=== PATIENT | male | born 1945 | race Caucasian/White ===

== ENCOUNTER 2023-05-28 11:29 | Observation (INO) | payer OTHER ==
[2023-05-28 12:47] LABS: #Basophils 0.1 thou/uL (0.0-0.2); #Lymphocytes 0.8 thou/uL (1.20-3.40); #Monocytes 0.6 thou/uL (0.11-0.59); #Neutrophils 8.7 thou/uL (1.40-6.50); %Basophils 0.6 % (0.0-1.0); %Eosinophils 0.2 % (0.0-10.0); %Lymphocytes 8.2 % (21.0-51.0); %Monocytes 5.8 % (0.0-10.0); %Neutrophils 85.2 % (42.0-75.0); Hematocrit 42.7 % (42.0-52.0); Hemoglobin 14.1 g/dL (14.0-18.0); Mean Corpuscular HGB CONC 33.1 g/dL (32.0-36.0); Mean Corpuscular Hemoglobin 29.4 pg (27.0-31.0); Mean Corpuscular Volume 88.6 fl (78.0-98.0); Mean Platelet Volume 7.1 fL (7.4-10.4); Platelet Count 218 10x3/uL (130-400); RBC Distribution Width 13.1 % (11.5-14.5); Red Blood Cell (RBC) Count 4.82 mill/uL (4.70-6.10); White Blood Cell (WBC) Count 10.3 10x3/uL (4.8-10.8)
[2023-05-28 12:49] LABS: ALT (SGPT) 13 U/L (8-55); AST (SGOT) 20 U/L (5-34); Albumin 4.1 g/dL (3.4-4.8); Alkaline Phosphatase 73 U/L (40-110); Anion Gap 17 mmol/L (10-20); BUN (Urea Nitrogen) 20 mg/dL (8.4-25.7); Bilirubin, Total 0.9 mg/dL (0.2-1.2); Calc. Creatinine Clearance 0 mL/min (70-130); Calcium 9.1 mg/dL (7.8-10.44); Carbon Dioxide 23 mmol/L (23-31); Chloride 96 mmol/L (98-107); Estimated GFR 80; Globulin 3.6 g/dL (2.4-3.5); Glucose 107 mg/dL (83-110); Potassium 4.3 mmol/L (3.5-5.1); Protein, Total 7.7 g/dL (5.8-8.1); Sodium 132 mmol/L (136-145)
[2023-05-28 12:56] LABS: Bilirubin Negative (Negative); Blood, Urine Negative (Negative); Clarity Clear (Clear); Glucose, Urine (Dipstick) Negative (Negative); Ketone, Urine Trace mg/dL (Negative); Leukocyte Negative (Negative); Nitrite Negative (Negative); Protein, Urine (Dipstick) 100 mg/dL (Neg-Trace)
[2023-05-28 12:58] LABS: CAUTI Indications for Culture Fever or rigors; RBC/HPF None Seen HPF (0-3); Specific Gravity, Urine 1.028 (1.002-1.036); WBC/HPF 0-3 HPF (0-3)
[2023-05-28 12:59] LABS: Bacteria/HPF None Seen HPF (None Seen)
[2023-05-28 13:00] LABS: Urine Culture Reflex No No
[2023-05-28 13:00] LABS: SARS-CoV-2 NAA Rapid Test DETECTED (NotDetected)
[2023-05-28 14:01] LABS: SARS-CoV-2 NAA Rapid Test DETECTED (NotDetected)
[2023-05-28] MEDS ORDERED: Acetaminophen 325 MG TAB ONE (15:09)
[2023-05-28 15:27] LABS: Lactic Acid 2.5 mmol/L (0.5-2.2)
[2023-05-28 17:26] VITALS: BMI 21.5
[2023-05-28] MEDS: Sodium Chloride 0.9% 1,000 ML IV SCH (17:30)
[2023-05-28] MEDS ORDERED: Sodium Chloride 0.65% Nasal 44 ML BOT EA NARE PRN (17:44)
[2023-05-28] MEDS ORDERED: Senokot S 8.6-50 MG TAB PO PRN (17:44)
[2023-05-28] MEDS ORDERED: cloNIDine 0.1 MG TAB PO PRN (17:44)
[2023-05-28] MEDS ORDERED: Bisacodyl 5 MG TAB PO PRN (17:44)
[2023-05-28] MEDS ORDERED: Acetaminophen 650 MG Suppository PR PRN (17:44)
[2023-05-28] MEDS ORDERED: Bisacodyl 10 MG SUPP PR PRN (17:44)
[2023-05-28] MEDS ORDERED: Benzonatate 100 MG CAP PO PRN (17:44)
[2023-05-28] MEDS ORDERED: Benzocaine/Menthol 1 LOZ LOZ PO PRN (17:44)
[2023-05-28] MEDS ORDERED: Ondansetron ODT 4 MG TAB PO PRN (17:44)
[2023-05-28] MEDS ORDERED: Acetaminophen 325 MG TAB PO PRN (17:44)
[2023-05-28] MEDS ORDERED: Calcium Carbonate 500 MG ChewTAB PO PRN (17:44)
[2023-05-28] MEDS ORDERED: Artificial Tear Sol 15 ML BOT EA EYE PRN (17:44)
[2023-05-28] MEDS ORDERED: Guaifenesin DM 100-10/5 ML UDCUP PO PRN (17:44)
[2023-05-28] MEDS ORDERED: FLU VACC QS2023(65UP)/MF59C/PF 60 MCG/0.5 ML SYRINGE IM ONE (17:45)
[2023-05-28] MEDS: Memantine 10 MG TAB PO SCH (20:54)
[2023-05-28] MEDS: Famotidine 20 MG TAB PO SCH (20:54)
[2023-05-28] MEDS ORDERED: Atorvastatin Calcium 40 MG TAB PO SCH (21:00)
[2023-05-28] MEDS ORDERED: Donepezil HCl 10 MG TAB PO SCH (21:00)
[2023-05-28 22:38] LABS: Lactic Acid 1.9 mmol/L (0.5-2.2)
[2023-05-29] MEDS: Sodium Chloride 0.9% 1,000 ML IV SCH (01:28)
[2023-05-29 05:19] LABS: #Eosinphils 0.1 thou/uL (0.0-0.7); #Lymphocytes 1.3 thou/uL (1.20-3.40); #Monocytes 0.7 thou/uL (0.11-0.59); %Basophils 0.4 % (0.0-1.0); %Eosinophils 1.1 % (0.0-10.0); %Lymphocytes 14.1 % (21.0-51.0); %Monocytes 7.6 % (0.0-10.0); %Neutrophils 76.8 % (42.0-75.0); Hematocrit 32.7 % (42.0-52.0); Hemoglobin 11.3 g/dL (14.0-18.0); Mean Corpuscular HGB CONC 34.5 g/dL (32.0-36.0); Mean Corpuscular Hemoglobin 29.9 pg (27.0-31.0); Mean Corpuscular Volume 86.5 fl (78.0-98.0); Mean Platelet Volume 6.8 fL (7.4-10.4); Platelet Count 189 10x3/uL (130-400); RBC Distribution Width 12.8 % (11.5-14.5); Red Blood Cell (RBC) Count 3.78 mill/uL (4.70-6.10); White Blood Cell (WBC) Count 9.1 10x3/uL (4.8-10.8)
[2023-05-29 05:42] LABS: Anion Gap 12 mmol/L (10-20); Globulin 2.5 g/dL (2.4-3.5)
[2023-05-29 05:45] LABS: ALT (SGPT) 10 U/L (8-55); AST (SGOT) 18 U/L (5-34); Albumin 3.2 g/dL (3.4-4.8); Alkaline Phosphatase 51 U/L (40-110); BUN (Urea Nitrogen) 14 mg/dL (8.4-25.7); Bilirubin, Total 0.7 mg/dL (0.2-1.2); Calc. Creatinine Clearance 73 mL/min (70-130); Carbon Dioxide 21 mmol/L (23-31); Chloride 103 mmol/L (98-107); Estimated GFR 94; Glucose 90 mg/dL (83-110); Potassium 3.9 mmol/L (3.5-5.1); Protein, Total 5.7 g/dL (5.8-8.1); Sodium 132 mmol/L (136-145)
[2023-05-29 06:44] LABS: Lactic Acid 0.7 mmol/L (0.5-2.2)
[2023-05-29] MEDS ORDERED: Sodium Chloride 0.9% 1,000 ML IV SCH (06:45)
[2023-05-29] MEDS: Famotidine 20 MG TAB PO SCH (08:20)
[2023-05-29] MEDS: Memantine 10 MG TAB PO SCH (08:20)
[2023-05-29] MEDS ORDERED: Timolol 0.5% Ophth Soln 5 ml Bottle EA EYE SCH (09:00)
[2023-05-29] MEDS ORDERED: Aspirin 81 mg Enteric Coated Tablet PO SCH (09:00)
[2023-05-29] MEDS ORDERED: Enoxaparin 40 MG (0.4 mL) SYRINGE SC SCH (09:00)
[2023-05-29] MEDS ORDERED: Clopidogrel Bisulfate 75 MG TAB PO SCH (09:00)
[2023-05-29 11:57] VITALS: BP 125/66; TEMP 98.1
== END 2023-05-29 13:50 ==
LOC: NAV ERS 11:29 → NAV ACUTE 16:49
PROVIDERS: ADMIT Family Medicine; ATTEND Family Medicine
PROC: 0T9B7ZZ Drainage of Bladder, Via Natural or Artificial Opening (ICD-10-PCS; principal; 2023-05-29)
DX: U07.1 COVID-19 (principal); F03.90 Unspecified dementia, unspecified severity, without behavioral disturbance, psychotic disturbance, mood disturbance, and anxiety; Z79.82 Long term (current) use of aspirin; Z79.899 Other long term (current) drug therapy
CPT/HCPCS: 0240U; 51701; 70450; 71045; 80053; 81001; 83605 ×2; 85025; 87040; 87804 ×2; 96360; 96361 ×3; 96372; 99285; G0378 ×4; 36415; 84443; J1650; J7050; U0002